=== PATIENT | male | born 1995 | race Caucasian/White ===

== ENCOUNTER 2016-05-31 13:53 | Outpatient (RCR) | payer BC ==
[~2016-05-31 13:53] MED LIST: AMITRIPTYLINE H50 M1 PO; AMITRIPTYLINE H75 M1 PO; ATOXIMETIN-B1 CAP PO; AUGMENTIN 875 M1 TAB PO; BACTRIM DS 8001 TAB PO; CATAPRES 0.1MG0.1 MG PO; CLEOCIN T1%; CLINDAMYCIN HC150 MG PO; CYMBALTA 60MG60 MG PO; DILAUDID 2MG TAB2 MG PO; EFFEXOR 75M75 MG/TAB PO; HYDROCODONE/APAP; HYSINGLA40 PO; LIORESAL 1010 MG/TAB PO; LYRICA 100MG C100 M1 PO; MOTRIN 400400 MG/TAB PO; NEURONTIN300 MG/CAP PO; NO HOME MEDICATIONS; NORCO 325 MG-101 TAB PO; NORCO 325 MG-51 TAB PO; NORCO 325 MG-7.1 TAB PO; OXYCONTIN 10MG10 MG PO; OXYCONTIN 20MG20 MG PO; PERCOCET 325 MG1 TA2 PO; VICODIN 5/5001 UDTAB PO; ZITHROMAX TRI-500 MG PO; ZOHYDRO ER20 MG PO
== END 2016-07-04 09:16 | disposition home or self-care (01) ==
LOC: WSPT 13:53
DX: G90.521 Complex regional pain syndrome I of right lower limb (principal)

== ENCOUNTER 2017-03-21 15:36 | Emergency (ER) | payer BC ==
[~2017-03-21] VITALS: Ht 188 cm; Wt 113.6 kg
[2017-03-21 15:41] VITALS: BP 145/78; TEMP 99.9
[2017-03-21] MEDS ORDERED: NORCO 325 MG-51 TAB PO (16:17)
[2017-03-21] MEDS ORDERED: HYSINGLA60 (16:17)
[2017-03-21] MEDS ORDERED: MELATONIN5 M1 SL (16:18)
[2017-03-21] MEDS ORDERED: MASON NATURAL1200 MG PO (16:18)
[2017-03-21] MEDS ORDERED: NORCO 325 MG-7.1 TAB PO (17:09)
[2017-03-21 18:03] VITALS: PULSE 94
== END 2017-03-21 18:04 | disposition home or self-care (01) ==
LOC: COL.ER 15:36
DX: M25.551 Pain in right hip (principal); M25.561 Pain in right knee; Z98.890 Other specified postprocedural states
CPT/HCPCS: J1170; J2550

== ENCOUNTER → 2017-09-26 | Outpatient (CLI) | payer BC ==
[~2017-09-26] MED LIST changes: +HYSINGLA60; +MASON NATURAL1200 MG PO; +MELATONIN5 M1 SL
== END ==
LOC: COL.RAD 08:15
DX: M25.552 Pain in left hip (principal)
CPT/HCPCS: J3301; Q9967

== ENCOUNTER 2017-11-30 10:38 | Emergency (ER) | payer BC ==
[~2017-11-30] VITALS: Ht 188 cm; Wt 109.1 kg
[2017-11-30 10:50] VITALS: TEMP 97.8
[2017-11-30 12:39] VITALS: BP 101/59; PULSE 84
== END 2017-11-30 12:49 | disposition home or self-care (01) ==
LOC: COL.ER 10:38
DX: S06.9X9A Unspecified intracranial injury with loss of consciousness of unspecified duration, initial encounter (principal); S16.1XXA Strain of muscle, fascia and tendon at neck level, initial encounter; W05.0XXA Fall from non-moving wheelchair, initial encounter; Y92.009 Unspecified place in unspecified non-institutional (private) residence as the place of occurrence of the external cause
CPT/HCPCS: J1170; J2550

== ENCOUNTER 2017-12-17 16:15 | Outpatient (RCR) | payer BC | END 2018-02-17 | disposition home or self-care (01) | LOC: WSPT | DX: M70.62 Trochanteric bursitis, left hip (principal) ==

== ENCOUNTER → 2018-02-06 | Outpatient (CLI) | payer BC ==
[2018-02-06 10:33] LABS: BASO % 0.5 % (0.0-2.0); EOS # 0.1 (0.0-0.7); EOS % 1.7 % (0-4.0); GRAN # 4.1 (1.4-6.5); GRAN % 50.3 % (42.2-75.2); HEMATOCRIT 45.2 % (42.0-52.0); HEMOGLOBIN 15.3 g/dl (13.5-18.0); LYMPH # 3.3 (1.2-3.4); LYMPH % 40.4 % (20.0-51.0); MEAN CELL VOLUME 86 fl (80.0-100.0); MEAN CORPUSCULAR HEMOGLOBIN 29 pg (27.0-31.0); MEAN CORPUSCULAR HGB CONC 34 g/dl (33.0-37.0); MEAN PLATELET VOLUME 9.4 fl (7.4-10.4); MONO # 0.6 (0.1-0.6); PLATELET COUNT 256 K/mm3 (130-400); RED BLOOD COUNT 5.26 M/mm3 (4.20-5.60); REDCELL DISTRIBUTION WIDTH-CV 13.2 % (11.5-14.5)
[2018-02-06 10:59] LABS: ERYTHROCYTE SEDIMENTATION RATE 2 mm/hr (0-15)
[2018-02-06 11:24] LABS: ALBUMIN 4.4 gm/dL (3.5-5.0); BILIRUBIN,TOTAL 0.6 mg/dL (0.0-1.0); C-REACTIVE PROTEIN 1.4 mg/dL (0.0-0.9); CALCIUM 9.6 mg/dL (8.4-10.2); CREATININE, serum 1.05 mg/dL (0.66-1.25); POTASSIUM 4.2 mmol/L (3.4-5.0); TOTAL PROTEIN 7.3 gm/dL (6.4-8.2)
[2018-02-07 10:53] LABS: EBV EARLY ANTIGEN IGG Negative (()); EBV IGM AB Negative (()); EBV NUCLEAR ANTIGEN IGG Negative (())
== END ==
LOC: COL.LAB 09:53
PROVIDERS: Otolaryngology
DX: R59.1 Generalized enlarged lymph nodes (principal)

== ENCOUNTER 2019-04-04 18:52 | Emergency (ER) | payer BC ==
[~2019-04-04] VITALS: Ht 188 cm; Wt 115.9 kg
[~2019-04-04 18:52] MED LIST changes: +AMITRIPTYLINE H25 M1 PO; -AMITRIPTYLINE H75 M1 PO
[2019-04-04 18:54] VITALS: TEMP 99.3
[2019-04-04] MEDS ORDERED: HYSINGLA60 PO (19:03)
[2019-04-04] MEDS ORDERED: MONODOX100 PO (19:04)
[2019-04-04] MEDS ORDERED: PROTONIX 40MG T40 MG PO (19:04)
[2019-04-04 19:36] LABS: BASO % 0.6 % (0.0-2.0); EOS % 0.4 % (0-4.0); GRAN # 3.6 (1.4-6.5); HEMATOCRIT 43.1 % (42.0-52.0); HEMOGLOBIN 14.7 g/dl (13.5-18.0); LYMPH # 0.6 (1.2-3.4); LYMPH % 11.8 % (20.0-51.0); MEAN CELL VOLUME 85 fl (80.0-100.0); MEAN CORPUSCULAR HEMOGLOBIN 29 pg (27.0-31.0); MEAN CORPUSCULAR HGB CONC 34 g/dl (33.0-37.0); MEAN PLATELET VOLUME 9.6 fl (7.4-10.4); MONO # 0.6 (0.1-0.6); MONO % 12.8 % (1.7-9.3); PLATELET COUNT 212 K/mm3 (130-400); RED BLOOD COUNT 5.09 M/mm3 (4.20-5.60); REDCELL DISTRIBUTION WIDTH-CV 12.9 % (11.5-14.5)
[2019-04-04 19:44] LABS: ALBUMIN 4.4 gm/dL (3.5-5.0); BILIRUBIN,TOTAL 0.6 mg/dL (0.0-1.0); CALCIUM 9.1 mg/dL (8.4-10.2); CREATININE, serum 0.93 (0.66-1.25); POTASSIUM 3.7 mmol/L (3.4-5.0); TOTAL PROTEIN 7.4 gm/dL (6.4-8.2)
[2019-04-04 20:52] LABS: COLLECTION METHOD CLEAN CATCH
[2019-04-04 20:57] LABS: MUCOUS Present /lpf; PH 6 (5-8); SQUAMOUS EPITHELIAL None Seen /hpf; URINE APPEARANCE Clear; URINE BACTERIA None Seen /hpf; URINE BILIRUBIN Negative (NEGATIVE); URINE BLOOD 1+ (NEGATIVE); URINE COLOR Yellow; URINE GLUCOSE Negative (NEGATIVE); URINE KETONE Negative (NEGATIVE); URINE LEUKOCYTE ESTERASE Negative (NEGATIVE); URINE NITRATE Negative (NEGATIVE); URINE PROTEIN(semi-quant) Negative (NEGATIVE); URINE RBC 0-2 /hpf; URINE UROBILINOGEN Negative (NEGATIVE)
[2019-04-04] MEDS ORDERED: PREDNISONE20 MG PO (21:33)
[2019-04-04 22:07] VITALS: BP 94/49; PULSE 115
== END 2019-04-04 22:07 | disposition home or self-care (01) ==
LOC: COL.ER 18:52
PROVIDERS: Emergency Medicine
DX: S33.9XXA Sprain of unspecified parts of lumbar spine and pelvis, initial encounter (principal); M54.17 Radiculopathy, lumbosacral region; K21.9 Gastro-esophageal reflux disease without esophagitis; R40.2412 Glasgow coma scale score 13-15, at arrival to emergency department; W07.XXXA Fall from chair, initial encounter; Y92.009 Unspecified place in unspecified non-institutional (private) residence as the place of occurrence of the external cause
CPT/HCPCS: J2060; J3010; J7030; J7512; Q9967

== ENCOUNTER 2021-08-12 18:04 | Emergency (ER) | payer BC ==
[~2021-08-12] VITALS: Ht 188 cm; Wt 116.8 kg
[~2021-08-12 18:04] MED LIST changes: +HYSINGLA60 PO; +MONODOX100 PO; +PREDNISONE20 MG PO; +PROTONIX 40MG T40 MG PO
[2021-08-12 18:05] VITALS: TEMP 98
[2021-08-12 18:34] LABS: BASO % 0.5 % (0.0-2.0); EOS # 0.1 K/mm3 (0.0-0.7); EOS % 0.9 % (0.0-4.0); GRAN # 5.9 K/mm3 (1.4-6.5); GRAN % 67.1 % (42.2-75.2); HEMATOCRIT 41.2 % (42.0-52.0); HEMOGLOBIN 14.3 g/dl (13.5-18.0); LYMPH # 2.1 K/mm3 (1.2-3.4); LYMPH % 23.5 % (20.0-51.0); MEAN CELL VOLUME 81 fl (80.0-100.0); MEAN CORPUSCULAR HEMOGLOBIN 28 pg (27-31); MEAN CORPUSCULAR HGB CONC 35 g/dl (33.0-37.0); MEAN PLATELET VOLUME 9.6 fl (7.4-10.4); MONO # 0.7 K/mm3 (0.1-0.6); MONO % 7.8 % (1.7-9.3); PLATELET COUNT 277 K/mm3 (130-400); RED BLOOD COUNT 5.06 M/mm3 (4.20-5.60)
[2021-08-12 18:45] LABS: ALANINE AMINOTRANSFERASE 60 U/L (0-55); ALBUMIN 3.9 gm/dL (3.5-5.0); ALKALINE PHOSPHATASE 77 U/L (40-150); ANION GAP 11 mmol/L (7-16); AST,SGOT 37 U/L (5-34); BILIRUBIN,TOTAL 0.7 mg/dL (0.2-1.2); BLOOD UREA NITROGEN 6 mg/dL (9-21); CALCIUM 9.5 mg/dL (8.4-10.2); CARBON DIOXIDE 24 mmol/L (22-29); CHLORIDE 103 mmol/L (98-107); CREATININE, serum 0.93 mg/dL (0.72-1.25); GLUCOSE 96 mg/dL (70-99); POTASSIUM 3.5 mmol/L (3.5-4.5); SODIUM 138 mmol/L (136-145); TOTAL PROTEIN 8.3 gm/dL (6.2-8.1)
[2021-08-12 19:13] LABS: TROPONIN-I < 0.010 ng/mL (0.00-0.033)
[2021-08-12 20:36] VITALS: BP 106/54; PULSE 106
== END 2021-08-12 20:36 | disposition home or self-care (01) ==
LOC: COL.ER 18:04
PROVIDERS: Personal Emergency Response Attendant
DX: E87.71 Transfusion associated circulatory overload (principal); R06.00 Dyspnea, unspecified; R55 Syncope and collapse; Z28.310 Unvaccinated for COVID-19
CPT/HCPCS: Q9967